=== PATIENT | male | born 1955 | race Two or more races ===

== ENCOUNTER 2025-10-01 09:42 | Outpatient (AMB) | payer MEDICARE, SELFPAY ==
--- NOTE | 2025-10-01 09:47 | A.PHYSOV ---
Vital Signs 10/01/25 09:49 Height 6 ft 2 in Weight 335 lb BMI 43.0 Intake Visit Reasons: back pain Intake Note: Patient is a 70 year old male here today for back pain. Infusion Pharmacist Required: No Allergies seafood Allergy (Unknown, Verified 10/01/25 09:47) Unknown HPI Comments Details: History of Present Illness The patient is a 70-year-old male presenting for evaluation of back and foot pain. 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 The patient reports symptoms in his feet including burning, tingling, and a sensation like a mattress in his shoes. These symptoms are worse at night and sometimes awaken him from sleep, forcing him to get out of bed. He also reports back pain that radiates down his legs to his buttocks and hips, which he believes may be sciatica. He has no prior back x-rays. The patient has a history of receiving injections of Depo-Medrol with lidocaine in his back in [place], which he reports were helpful. A review of his records indicates he received bilateral sacroiliac joint injections on May 16, 2020. He has tried physical therapy in the past but found the exercises too strenuous. His diabetes is reportedly well-controlled with Mounjaro. He denies alcohol use. Pain Description - Location: Pain is located in the low back, hips, and buttocks, with radiation down the legs. - Associated Symptoms: He also experiences burning, tingling, and a sensation of a mattress in his feet, which sometimes travels up his legs. - Severity: The pain is currently a 3-4/10 but can worsen. - Timing: The foot pain is worse at night and can awaken him from sleep. - Alleviating Factors: He reports that prior injections of Depo-Medrol with lidocaine were helpful. Results - Medical Records: Previous reports confirm bilateral SI joint injections on May 16, 2020. [facility] Surgical History (Updated 10/01/25 @ 09:51 by Linda Knox MA) H/O lithotripsy Social History (Updated 10/01/25 @ 09:52 by Linda Knox MA) Alcohol intake: current Alcohol intake frequency: does not drink Patient Tobacco Use Status: Former Tobacco user Use of substances other than those prescribed or required for medical reasons: No Review of Systems Narrative Review of Systems - Musculoskeletal: Reports back pain and hip pain. - Neurological: Reports burning, tingling, and a sensation of a mattress in his feet, which can sometimes ascend his legs. - Reports pain radiating from his back to his buttocks, hips, and down his legs. - Genitourinary: Reports flank pain and questions a possible kidney stone. Physical Exam Exam Exam: Physical Exam - Back: No tenderness to palpation of the lower back. - Pain is elicited with lumbar extension. - No pain with forward flexion. - Tenderness to palpation over bilateral sacroiliac joints. - Neurological: Sensation is reported as equal in bilateral lower extremities. - Musculoskeletal: Full strength with foot dorsiflexion and plantarflexion, thigh flexion, and knee extension bilaterally. - Straight leg raise is negative for producing back or leg pain. Vital Signs: BMI result Body Mass Index 43.0 Assessment & Plan Assessment & Plan (1) Diabetic neuropathy: Code(s): E11.40 - Type 2 diabetes mellitus with diabetic neuropathy, unspecified Category: Medical Qualifiers: Diabetes mellitus complication detail: diabetic polyneuropathy Diabetes mellitus type: type 2 Qualified Code(s): E11.42 - Type 2 diabetes mellitus with diabetic polyneuropathy (2) Lumbar radiculopathy: Code(s): M54.16 - Radiculopathy, lumbar region Category: Medical Plan Pain Management - Analgesia: He previously received steroid injections which provided some relief. - Current pain level is 3-4/10. - Activities of Daily Living: His foot pain interrupts his sleep. - Aberrant Drug-Related Behaviors: He denies any alcohol consumption. Plan Patient was informed and verbally consented to the use of an ambient scribe for clinic note documentation during this visit. 1. Low Back Pain With Sciatica An x-ray of the back will be ordered to further evaluate the cause of his pain. The patient will be provided with a home exercise program to perform for 5 weeks, as he had a poor prior experience with formal physical therapy. If his symptoms do not improve after 5 weeks of home exercises, an MRI will be obtained to better visualize the lumbar spine before considering any injections. 2. Diabetic Neuropathy To manage his neuropathic pain, gabapentin 300 mg at night will be initiated. The patient was counseled that there is no cure for neuropathy and that the most effective management strategies are tight glycemic control and avoidance of alcohol. A follow-up visit is scheduled in five weeks. Discussion Notes I discussed the plan for his back pain, which involves obtaining an x-ray and starting a home exercise program. I explained that we need to determine the underlying cause of his pain before proceeding with further injections, and if he does not improve with exercises in five weeks, an MRI will be ordered. We discussed his neuropathic foot pain, and I recommended starting gabapentin 300 mg at night to help with pain, numbness, tingling, and sleep. I emphasized that there is no cure for neuropathy and that the best management involves good diabetic control and avoiding alcohol. The patient understood and agreed to the plan. Patient Instructions - Please get an X-ray of your back at a [facility] so your primary doctor can also see the results. - I will provide you with a home exercise program. - Please do these exercises for the next five weeks. - Schedule a follow-up appointment to see me in five weeks. - Start taking gabapentin 300 mg by mouth every night. - This medication can help with the nerve pain in your feet and may also help you sleep better. - Continue to take care of your diabetes and keep your blood sugars well-controlled. - Avoid drinking alcohol, as it can worsen nerve damage. Orders: Orders XR lumbar spine 4V min 10/01/25 M54.9 - Dorsalgia, unspecified Medications: New gabapentin 300 mg PO BEDTIME 30 caps 6RF 30 days E11.42 - Type 2 diabetes mellitus with diabetic polyneuropathy Coding Level of Care Code Tele Est Pt Level 4 (00376) Diagnoses Diabetic polyneuropathy associated with type 2 diabetes mellitus E11.42 Diabetes mellitus complication detail: diabetic polyneuropathy Diabetes mellitus type: type 2 Lumbar radiculopathy M54.16
[2025-10-01 09:49] VITALS: BMI 43.0
--- OUTSIDE RECORDS SUMMARY | 2025-10-01 11:18 | XMS_ITS | Encounter Summary ---
Author Organization [facility] [place] [address] Care Team Providers Care Final Dressing Cutter Name Role Phone Sheila Condon MD Primary Care Provider [phone] Encounter Details Date Type Department Care Team (Latest Contact Info) Description 10/01/2025 11:18 AM EST Hospital Encounter [facility] Xray [address] [place] [address] Dorsalgia, unspecified Social History Tobacco Use Types Packs/Day Years Used Date Smoking Tobacco: Former Cigarettes 0 Q uit: 10/17/1986 Smokeless Tobacco: Never Alcohol Use Standard Drinks/Week Comments Not Currently 0 (1 standard drink = 0.6 oz pur e alcohol) Housing Instability Answer Date Recorde d Are you worried that in the next 2 months you may not have stable housing? No 01/08/2025 Food Access & Nutrition Answer Date Rec orded Do you have access to a vari ety of food including fruits and vegetables? Yes 01/08/2025 Access to Healthcare Answer Date Record ed Within the last 3 months, ho w many times did you visit the emergency department for your medical care? 0 01/08/2025 Health Literacy Answer Date Recorded How often do you need to hav e someone help you when you read instructions, pamphlets, or other written material from your doctor or pharmacy? Rarely 01/08/2025 Caregiver: How often do you need to have someone help you when you read instructions, pamphlets, or other written material from your doctor or pharmacy? Not on file 01/08/2025 Financial Risk Answer Date Recorded How hard is it for you to pa y for the very basics like food, housing, medical care, and air conditioning / heating? Not very hard 01/08/2025 Transportation Answer Date Recorded Has the lack of transportati on kept you from meetings, work, or from getting things needed for daily living? No Has the lack of transportati on kept you from medical appointments or from getting medications? No 01/08/2025 Social Isolation Answer Date Recorded How often do you feel lonely or isolated from th ose around you? Never 01/08/2025 Food Risk Answer Date Recorded Within the past 12 months we worried whether our food would run out before we got money to buy more. Never true 01/08/2025 Within the past 12 months th e food we bought just didn't last and we didn't have money to get more. Never true 01/08/2025 Dependent Care Answer Date Recorded Do you need help finding or paying for care for your loved ones. For example, child day care center worker or elderly care for an older adult? No 01/08/2025 Education Answer Date Recorded Do you think completing more education or training, like finishing a GED, going to college, or learning a trade, would be helpful for you? No 01/08/2025 Employment and Income Answer Date Recor ded During the last four weeks, have you been actively looking for work? No 01/08/2025 Living Situation Answer Date Recorded What is your living situation? Unrecognized valu e 01/08/2025 Interpersonal Safety Answer Date Record ed Physical Abuse Unrecognized value 08/26/2025 Verbal Abuse Unrecognized value 08/26/2025 Sex and Gender Information Value Date Recorded Sex Assigned at Male 08/21/2025 11:25 AM EST Legal Sex Male 5:38 AM EST Gender Identity Male 08/21/2025 11:25 AM EST Sexual Orientation Straight 08/21/2025 11 :25 AM EST documented as of this encounter Plan of Treatment Upcoming Encounters Date Type Department Care Team (Late st Contact Info) Description 11/06/2025 9:45 AM EST Appointment [facility] Xray [address] [place] [phone] 02/05/2026 9:45 AM EDT Office Visit Internal Medicine - [place] [address] [place] [phone] Sheila Condon MD [address] [place] [address] 03/31/2026 9:10 AM EDT Office Visit Gastroenterology - [address] [facility] [address] [place] [address] Keila Suarez PA 299 [facility] [address] [place] [address] Scheduled Orders Name Type Priority Associated Diagnoses Orde r Schedule XR Lumbar Spine 4+ Views Imaging Routine Dorsalgia, unspecified Once for 1 Occurrences starting 10/01/2025 until 10/01/2025 documented as of this encounter Visit Diagnoses Diagnosis Dorsalgia, unspecified documented in this encounter Additional Health Concerns Assessment Noted Time PHQ-9 Depression Total Score: 0 05/01/20 25 9:24 AM EDT documented as of this encounter Care Teams Final Dressing Cutter Relationship Specialty Start Date End Date Sheila Condon MD [address] [facility] [address] [place] [address] PCP - General Internal Medicine 09/28/21 documented as of this encounter
--- OUTSIDE RECORDS SUMMARY | 2025-10-01 11:30 | XMS_ITS | Encounter Summary ---
Author Organization [facility] [place] [address] Care Team Providers Care C4 Planner Name Role Phone Sheila Condon MD Primary Care Provider [phone] Encounter Details Date Type Department Care Team ([facility] Contact Info) Description 08/25/2025 Results Follow-Up Gastroenterology - [address] [phone] Keila Suarez PA [address] [address] Social History Tobacco Use Types Packs/Day Years [...] care for your loved ones. For example, childcare teacher or elderly care for an older adult? [...] AM EST documented as of this encounter Progress Notes * RASHAUN Laguerre - 08/25/2025 6:53 PM EST I will send msg. documented in this encounter Plan of Treatment Upcoming Encounters Date Type Department Care Team (Latest Contact Info) Description 10/01/2025 11:18 AM EST Hospital Encounter [facility] Xray [address] [place] [phone] Dorsalgia, unspecified 11/06/2025 9:45 AM EST Appointment [facility] Xray [address] [place] [phone] 02/05/2026 9:45 AM EDT Office Visit Internal Medicine - [place] [address] [facility] [address] [address] [place] [phone] Sheila Condon MD [address] [place] [phone] 03/31/2026 9:10 AM EDT Office Visit Gastroenterology - [address] [place] [address] 299 [facility] [address] [place] [phone] Keila Suarez PA 299 [facility] [address] [place] [address] documented as of this encounter Visit Diagnoses Not on filedocumented in this encounter Additional Health Concerns Assessment Noted Time PHQ-9 Depression Total Score: 0 05/01/20 25 9:24 AM EDT documented as of this encounter Care Teams C4 Planner Relationship Specialty Start Date End Date Sheila Condon MD 175 [facility] [address] [place] [phone] PCP - General Internal Medicine 09/28/21 documented as of this encounter
--- OUTSIDE RECORDS SUMMARY | 2025-10-01 11:30 | XMS_ITS | Encounter Summary ---
Author Organization [facility] [place] [address] Care Team Providers Care Manufacturing Engineering Technician Name Role Phone Sheila Condon MD Primary Care Provider [phone] Encounter Details Date Type Department Care Team ([facility] st Contact Info) Description 08/27/2025 Results Follow-Up Gastroenterology - [address] [phone] Nadir Chavez DO [address] [address] Social History Tobacco Use Types Packs/Day Years [...] for your loved ones. For example, child caregiver private home or elderly care for an older adult? [...] as of this encounter Progress Notes * Lavinia Solis MA - 09/10/2025 9:15 AM EST [facility] Olson: [id number] approved. Effective Date: 09/10/2025 Authorization Expiration Date: 10/16/2026 [facility] informed. 0$ copay. Patient informed. * Sanjuanita Martin - 09/09/2025 10:37 AM EST Patient called back and said that his insurance does not cover this medication and it cost lie 800$which he can not afford. He is asking what Dr. Chavez wants him to do. He says in the meantime he willcontinue taking what he has been. Please advise. vonoprazan 20 mg tablet * Verenice Mario - 09/02/2025 10:17 AM EST Cathryn is calling from Dr. Leach office stating that the doctor said it is okay for the pt to start on Voquenza documented in this encounter Plan of Treatment Upcoming Encounters Date Type Department Care Team (Latest Contact Info) Description 10/01/2025 11:18 AM EST Hospital Encounter [facility] Xray [address] [place] [phone] Dorsalgia, unspecified 11/06/2025 9:45 AM EST Appointment [facility] Xray [address] [place] [address] 02/05/2026 9:45 AM EDT Office Visit Internal Medicine - [place] [address] [facility] 200 [place] [phone] Sheila Condon MD [address] [place] [phone] 03/31/2026 9:10 AM EDT Office Visit Gastroenterology - [address] [place] [address] [address] [place] [phone] Keila Suarez PA [address] [address] documented as of this encounter Visit Diagnoses Not on filedocumented in this encounter Additional Health Concerns Assessment Noted Time PHQ-9 Depression Total Score: 0 05/01/20 25 9:24 AM EDT documented as of this encounter Care Teams Manufacturing Engineering Technician Relationship Specialty Start Date End Date Sheila Condon MD [address] [phone] PCP - General Internal Medicine 09/28/21 documented as of this encounter
--- OUTSIDE RECORDS SUMMARY | 2025-10-01 11:30 | XMS_ITS | Clinical Summary ---
Author Organization 175 [facility] Address [address] [place] [address] Phone Care Team Providers Care Substation Designer Name Role Phone Sheila Condon MD Primary Care Provider [phone] Allergies Active Allergy Reactions Criticality Noted Date Comments Other 04/10/2021 No reaction documented. Shellfish Containing Products 08/20/2025 Shellfish Derived Hives,Itching,Rash,S w elling 08/20/2025 Medications famotidine (PEPCID) 20 mg tablet TAKE 1 TABLET BY MOUTH TWICE DAILY 200 tablet 2 08/27/20 24 Active cyanocobalamin (VITAMIN B-12) 100 mcg tablet Take 1,000 Each by mouth daily. Active omeprazole (PriLOSEC) [address] capsule Take 1 Capsule by mouth daily for 360 days. 04/07/20 22 Active ondansetron (ZOFRAN) 4 mg tablet Take 1 Tablet by mouth 2 times daily as needed for Nausea. 07/19/20 23 Active multivitamin (MULTIPLE VITAMINS ORAL) Take 1 tablet by mouth daily. Active MELATONIN ORAL Take 10 mg by mouth. Active alpha lipoic acid 600 mg capsule Take 1 capsule by mouth daily. Active Multivitamins With Fluoride 0.25 mg chewable tablet Daily Active sulindac (CLINORIL) 150 mg tablet Take 1 tablet (150 mg total) by mouth 2 (two) times a day. TAKE 1 TABLET BY MOUTH WITH FOOD TWICE DAILY NEEDED FOR PAIN. 200 tablet 2 01/25/20 25 Active ketoconazole (NIZORAL) 2 % cream Apply topically 2 (two) times a day. Apply locally twice a day 15 g 3 06/04/20 25 Active glipiZIDE (GLUCOTROL XL) 5 mg 24 hr tablet TAKE 1 TABLET BY MOUTH EVERY DAY 90 tablet 3 06/26/20 25 Active tirzepatide (Mounjaro) 5 mg/0.5 mL injectionIndic ations:Type 2 diabetes mellitus with cataract (CMS/HCC V24, CMS/HCC V28),JOSE (obstructive sleep apnea),Morbid obesity (CMS/HCC V24, CMS/HCC V28) Inject 0.5 mL (5 mg total) under the skin every 7 (seven) days. 2 mL 2 07/15/20 25 Active Jardiance 10 mg tablet Take 1 tablet (10 mg total) by mouth 1 (one) time each day in the morning. 08/07/20 25 026 Active sucralfate (CARAFATE) 100 mg/mL suspension Take 10 mL (1 g total) by mouth 3 (three) times a day before meals. Take 1 hour before meals and at bedtime 900 mL 3 08/20/20 25 026 Active tiZANidine (ZANAFLEX) 4 mg tablet Take 1 tablet (4 mg total) by mouth 3 (three) times a day if needed for muscle spasms. 30 tablet 3 09/03/20 25 Active metoprolol succinate (TOPROL-XL) 200 mg 24 hr tablet TAKE 1 TABLET BY MOUTH DAILY 100 tablet 2 09/05/20 25 Active vonoprazan 20 mg tablet Take 20 mg by mouth 1 (one) time each day. 90 tablet 4 09/05/20 25 Active potassium chloride (MICRO-K) 10 mEq CR capsule TAKE 1 CAPSULE BY MOUTH DAILY 100 capsule 2 09/16/20 25 Active rosuvastatin (CRESTOR) 5 mg tablet TAKE 1 TABLET (5 MG TOTAL) BY MOUTH AT BEDTIME. 90 tablet 1 09/23/20 25 Active rosuvastatin (CRESTOR) 5 mg tablet Take 1 tablet (5 mg total) by mouth at bedtime. TAKE 1 TABLET BY MOUTH EVERYDAY AT BEDTIME 90 tablet 1 09/23/20 25 Active metoprolol succinate (TOPROL-XL) 200 mg 24 hr tablet TAKE 1 TABLET BY MOUTH DAILY 100 tablet 2 10/23/19 25 025 Discontinued potassium chloride (MICRO-K) 10 mEq CR capsule Take 1 capsule (10 mEq total) by mouth 1 (one) time each day. TAKE 1 CAPSULE BY MOUTH DAILY 100 capsule 2 10/29/19 025 Discontinued rosuvastatin (CRESTOR) 5 mg tablet Take 1 tablet (5 mg total) by mouth at bedtime. TAKE 1 TABLET BY MOUTH EVERYDAY AT BEDTIME 90 tablet 1 01/10/20 25 025 Discontinued(Re order) Active Problems Problem Noted Date Diagnosed Date Achalasia 01/13/2024 COVID-19 10/06/2022 Palpitations 06/09/2021 Overview (09/26/2024): Last Assessment & Plan: Occasional and very brief. Most likely from ectopic heartbeat. We had a discussion about ambulatory monitor device. BPH (benign prostatic hyperplasia) 04/10/2021 Cataract 04/10/2021 Overview (09/26/2024): bilaterally CKD (chronic kidney disease) stage 3, GFR 30-59 ml/min 04/10/2021 Assessment & Plan (05/01/2025 9:52 AM EDT): Orders: Hemoglobin A1c; Future Basic metabolic panel; Future Microalbumin creatinine urine ratio; Future Diverticulosis 04/10/2021 Overview (09/26/2024): Large bowel, 05/26/2020 abd/pelvic CT Hiatal hernia 04/10/2021 Overview (09/26/2024): Small, barium swallow 07/20/2018 HTN (hypertension) 04/10/2021 Overview (09/26/2024): Last Assessment & Plan: Well-controlled. We will continue current regimen. Hyperlipidemia 04/10/2021 Overview (09/26/2024): Last Assessment & Plan: Will suggest to start medium dose statin for primary prevention due to diabetes. Insomnia 04/10/2021 Major depressive disorder, recurrent, moderate 0 04/10/2021 Assessment & Plan (05/01/2025 9:52 AM EDT): Orders: Hemoglobin A1c; Future Basic metabolic panel; Future Microalbumin creatinine urine ratio; Future Bilateral renal cysts 04/10/2021 Overview (09/26/2024): 07/14/2020 MRI, follow up U/S recommended. Nephrolithiasis 04/10/2021 JOSE (obstructive sleep apnea) 04/10/2021 Overview (09/26/2024): [facility] Home Sleep Apnea Test: Date 06/11/2021; Wt 315#; BMI 39; GABRIEL (AHI) 9, AI 3; HI 7; Unclassified apneas 1; Obstructive apneas 13; Central apneas 1; Mixed apneas 8; hypopneas 41; average oxygen saturation 94% (lowest 86% without saturations <88% for 5% or more of study) - Obstructive Sleep Apnea - mild; mostly hypopneas with obstructive apneas; without sleep related hypoventilation by 2020 home sleep apnea test. Assessment & Plan (05/01/2025 9:52 AM EDT): Orders: tirzepatide (MOUNJARO) 5 mg/0.5 mL injection; Inject 0.5 mL (5 mg total) under the skin every 7 (seven) days. Hemoglobin A1c; Future Basic metabolic panel; Future Microalbumin creatinine urine ratio; Future Spinal stenosis, lumbar 04/10/2021 Type 2 diabetes mellitus with cataract Assessment & Plan (05/01/2025 9:52 AM EDT): Orders: tirzepatide (MOUNJARO) 5 mg/0.5 mL injection; Inject 0.5 mL (5 mg total) under the skin every 7 (seven) days. Ambulatory referral to Podiatry; Future Hemoglobin A1c; Future Basic metabolic panel; Future Microalbumin creatinine urine ratio; Future Type 2 diabetes mellitus with renal manifestatio ns 04/10/2021 Encounters Date Type Department Care Team Description 10/01/2025 11:18 AM [facility] Hospital Encounter [facility] Xray [address] [place] [address] Dorsalgia, unspecified 09/03/2025 9:45 AM EST Office Visit Internal Medicine - [place] [facility] [address] [place] [phone] Sheila Condon MD Spinal stenosis of lumbar region, unspecified whether neurogenic claudication present (Primary Dx); Primary hypertension; Mixed hyperlipidemia; Stage 3a chronic kidney disease ([facility] V24, [facility] V28); JOSE (obstructive sleep apnea) 08/27/2025 Results Follow-Up Gastroenterology - [address] [phone] Elizabeth Chavez DO 08/26/2025 8:35 AM EST Anesthesia Event [facility] Endoscopy [address] [place] [phone] Hai Olguin MD 08/26/2025 6:47 AM EST - 08/26/2025 11:59 PM EST Hospital Encounter [facility] Endoscopy [address] [place] [phone] Elizabeth Chavez DO Chang, Daniel J, MD Decandio, Laura, CRNA Dysphagia, unspecified type Discharge Disposition: Home or Self Care 08/25/2025 Results Follow-Up Gastroenterology - [address] [phone] Keila Suarez PA 08/20/2025 10:12 AM EST - 08/20/2025 11:59 PM EST Hospital Encounter [facility] Xray [address] [place] [address] Achalasia; Dysphagia, unspecified type; Tubular adenoma Discharge Disposition: Home or Self Care 08/20/2025 9:30 AM EST Office Visit Gastroenterology - [address] [phone] Keila Suarez PA Achalasia (Primary Dx); Dysphagia, unspecified type; Tubular adenoma 08/20/2025 Telephone Gastroenterology - [address] [phone] Adriana Goldberg [place] 08/15/2025 8:10 AM EDT Lab Draw Station - [address] [facility] [address] [place] [phone] Chronic kidney disease, stage III (moderate) ([facility] V24, [facility] V28) (Primary Dx); Morbid obesity ([facility] V24, [facility] V28); Diabetes mellitus ([facility] V24, [facility] V28) 07/16/2025 9:15 AM EDT Consult Orthopedic Surgery - [place] [address] [facility] [address] [place] [phone] Nael Bright DPM Controlled type 2 diabetes mellitus with diabetic polyneuropathy, without long-term current use of insulin ([facility] V24, [facility] V28) (Primary Dx); Hammer toes of both feet; Lumbosacral radiculopathy; Localized edema; PVD (peripheral vascular disease) ([facility] V24); Onychomycosis; Callus from Last 3 Months Immunizations Immunization Administration Dates Next Due Influenza Quadravalent, 0.5ml (Fluad) 65yo and o lder 09/28/2023 Influenza Quadravalent, 0.5m l (Fluzone High-dose) 65yo and older 07/22/2022,09/14/2021 Influenza trivalent, 0.5mL (Fluad) 65yo and olde r 09/03/2025 Omise SARS-CoV-2 COVID-19, mRNA, LNP-S, preservative free 12/20/2020,11/29/2020 Pneumococcal conjugate 20 va lent (Prevnar 20, PCV 20) 2mo and older 05/01/2025 RSV, bivalent, protein subun it RSVpreF, 0.5mL, Preservative Free (Arexvy) 50yo and older 09/28/2023 Surgical History Surgery Date Site/Laterality Comments LITHOTRIPSY 09/09/2020 Right PROCEDURE: HISTORICAL LITHOTRIPSY TONSILLECTOMY PROCEDURE: HISTORICAL TONSILLECTOMY COLONOSCOPY 04/28/2013 PROCEDURE: HISTORICAL COLONOSCOPY; COMMENT: colon polyps, mild sigmoid diverticulosis, internal hemorrhoid Grade 1. Medical History Medical History Date Comments JOSE (obstructive sleep apnea) 04/10/2021 DX :JOSE (obstructive sleep apnea) Type 2 diabetes mellitus wit h renal manifestations ([facility] V24, [facility] V28) 04/10/2021 DX:Type 2 diabetes mellitus with renal manifestations (HCC) CKD (chronic kidney disease) stage 3, GFR 30-59 ml/min ([facility] V24, [facility] V28) 04/10/2021 DX:CKD (chronic kidney disea se) stage 3, GFR 30-59 ml/min (HCC) HTN (hypertension) 04/10/2021 DX:HTN (hyper tension) Major depressive disorder, r ecurrent, moderate ([facility] V24, [facility] V28) 04/10/2021 DX:Major depressiv e disorder, recurrent, moderate ([facility]) Insomnia 04/10/2021 DX:Insomnia Spinal stenosis, lumbar 04/10/2021 DX:Spina l stenosis, lumbar Cataract 04/10/2021 DX:Cataract; COM MENT: bilaterally Type 2 diabetes mellitus wit h cataract ([facility] V24, [facility] V28) 04/10/2021 DX:Type 2 diabetes mellitus with cataract ([facility]) BPH (benign prostatic hyperplasia) 04/10/2021 DX:BPH (benign prostatic hyperplasia) Nephrolithiasis 04/10/2021 DX:Nephrolithias is Bilateral renal cysts 04/10/2021 DX:Bilater al renal cysts; COMMENT: 07/14/2020 MRI, follow up U/S recommended. CAD (coronary artery disease) 04/10/2021 DX :CAD (coronary artery disease) Diverticulosis 04/10/2021 DX:Diverticulosi s; COMMENT: Large bowel, 05/26/2020 abd/pelvic CT Hyperlipidemia 04/10/2021 DX:Hyperlipidemi a History of colon polyps 04/10/2021 DX:Histo ry of colon polyps; COMMENT: Copy of colonoscopy, difficult to read, ? 04/28/2013 History of gastritis 04/10/2021 DX:History of gastritis; COMMENT: Stomach biopsy 07/18/2018, negative Hiatal hernia 04/10/2021 DX:Hiatal hernia ; COMMENT: Small, barium swallow 07/20/2018 Family History Medical History Relation Name Comments Alzheimer's disease Father Alzheimer's disease Mother Relation Name Status Comments Father Mother Social History Tobacco Use Types Packs/Day Years Used Date Smoking Tobacco: Former Cigarettes 0 Q uit: 10/17/1986 Smokeless Tobacco: Never Tobacco Cessation:Counseling Given: Not Answered Alcohol Use Standard Drinks/Week Comments Not Currently [...] for your loved ones. For example, child care provider or elderly care for an older adult? [...] Orientation Straight 08/21/2025 11 :25 AM EST Last Filed Vital Signs Vital Sign Reading Time Taken Comments Blood Pressure 126/72 09/03/2025 9:46 AM EST Pulse 86 09/03/2025 9:46 AM EST Temperature 36.6 C (97.8 F) 09/03/2025 9:46 AM EST Respiratory Rate 18 09/03/2025 9:46 AM EST Oxygen Saturation 98% 09/03/2025 9:46 AM EST Inhaled Oxygen Concentration - - Weight 147 kg (323 lb) 09/03/2025 9:46 AM EST Height 188 cm (6' 2 ) 09/03/2025 9:46 AM EST Body Mass Index 41.47 09/03/2025 9:46 AM EST Plan of Treatment Upcoming Encounters Date Type Department Care Team (Latest Contact Info) Description 10/01/2025 11:18 AM EST Hospital Encounter [facility] Xray [address] [place] [phone] Dorsalgia, unspecified 11/06/2025 9:45 AM EST Appointment [facility] Xray [address] [place] [phone] 02/05/2026 9:45 AM EDT Office Visit Internal Medicine - [place] [facility] [address] [place] [phone] Sheila Condon MD [address] [place] [phone] 03/31/2026 9:10 AM EDT Office Visit Gastroenterology - [address] [facility] [address] [place] [phone] Keila Suarez PA [facility] [address] [place] [address] Health Maintenance Due Date Last Done Comments Diabetes: Annual Foot Exam 1965 DTaP,Tdap,and Td Vaccines (1 - Tdap) 1974 Zoster Vaccines (1 of 2) 1974 Abdominal Aortic Aneurysm (AAA) Screen 09/25/2022 Hepatitis C Screening 09/25/2022 COVID-19 Vaccine ( - season) 2025 09/10/2025, 07/22/2022, 04/03/2022, Additional history exists Social Influencers of Health Screening 01/08/2026 01/08/2025 Diabetes: Blood Sugar Control Test (HGBA1C) 02/13/2026 08/15/2025, 05/01/2025, 01/15/2025, Additional history exists Medicare Annual Wellness Visit 05/01/2026 05/01/2025 Diabetes: Annual Retina Eye Exam 08/13/2026 08/13/2025 Diabetes: Annual Urine Albumin-Creatinine Ratio (uACR) 08/15/2026 08/15/2025, 05/01/2025, 07/17/2024 Diabetes: Annual GFR (Glomerular Filtration Rate) 08/15/2026 08/15/2025, 05/01/2025, 01/15/2025, Additional history exists Hypertension/CHF/CAD Annual BMP Blood Test 08/15/2026 08/15/2025, 05/01/2025, 01/15/2025, Additional history exists Falls Risk Assessment 08/26/2026 08/26/2025 Cholesterol Screening (Lipid Panel) 01/15/2030 01/15/2025, 01/13/2024 Colorectal Cancer Screening: Colonoscopy 09/30/2032 09/30/2022 RSV Immunization Adult Patients Completed 09/28/2023 Depression Screening Completed 05/01/2025 Pneumococcal Vaccine: 50+ Years Completed 05/01/2025 Influenza Vaccine Completed 09/03/2025, , 07/22/2022, Additional history exists HIB Vaccines Aged Out No longer eligi ble based on patient's age to complete this topic HPV Vaccines Aged Out No longer eligi ble based on patient's age to complete this topic Hepatitis A Vaccines Aged Out No long er eligible based on patient's age to complete this topic Hepatitis B Vaccines Aged Out No long er eligible based on patient's age to complete this topic IPV Vaccines Aged Out No longer eligi ble based on patient's age to complete this topic MMR Vaccines Aged Out No longer eligi ble based on patient's age to complete this topic Meningococcal ACWY Vaccine Aged Out N o longer eligible based on patient's age to complete this topic Meningococcal B Vaccine Aged Out No l onger eligible based on patient's age to complete this topic RSV Immunization Patients Under 20 months Aged Out No longer eligible based on patient's age to complete this topic Varicella Vaccines Aged Out No longer eligible based on patient's age to complete this topic Procedures Procedure Name Priority Date/Time Associated Diagnosis Comments EGD Routine 08/26/2025 8:53 AM EST Dysphagia, unspecified type TISSUE EXAM Routine 08/26/2025 8:49 AM EST Dysphagia, unspecified type XR CERVICAL SPINE 2-3 VIEWS Routine 08/20/2025 10:54 AM EST Achalasia Dysphagia, unspecified type Tubular adenoma CBC WITH AUTO DIFFERENTIAL Routine 08/15/2025 8:23 AM EDT Chronic kidney disease, stage III (moderate) (CMS/HCC V24, CMS/HCC V28) Morbid obesity (CMS/HCC V24, CMS/HCC V28) Diabetes mellitus (CMS/HCC V24, CMS/HCC V28) CAMPOS URINE CULTURE TUBE Routine 08/15/2025 8:23 AM EDT Chronic kidney disease, stage III (moderate) (CMS/HCC V24, CMS/HCC V28) Morbid obesity (CMS/HCC V24, CMS/HCC V28) Diabetes mellitus (CMS/HCC V24, CMS/HCC V28) URINALYSIS WITH REFLEX MICROSCOPIC AND CULTURE Routine 08/15/2025 8:23 AM EDT Chronic kidney disease, stage III (moderate) (CMS/HCC V24, CMS/HCC V28) Morbid obesity (CMS/HCC V24, CMS/HCC V28) Diabetes mellitus (CMS/HCC V24, CMS/HCC V28) CBC AND DIFFERENTIAL Routine 08/15/2025 8:23 AM EDT Chronic kidney disease, stage III (moderate) (CMS/HCC V24, CMS/HCC V28) Morbid obesity (CMS/HCC V24, CMS/HCC V28) Diabetes mellitus (CMS/HCC V24, CMS/HCC V28) BASIC METABOLIC PANEL Routine 08/15/2025 8:23 AM EDT Chronic kidney disease, stage III (moderate) (CMS/HCC V24, CMS/HCC V28) Morbid obesity (CMS/HCC V24, CMS/HCC V28) Diabetes mellitus (CMS/HCC V24, CMS/HCC V28) HEMOGLOBIN A1C Routine 08/15/2025 8:23 AM EDT Chronic kidney disease, stage III (moderate) (CMS/HCC V24, CMS/HCC V28) Morbid obesity (CMS/HCC V24, CMS/HCC V28) Diabetes mellitus (CMS/HCC V24, CMS/HCC V28) THYROID STIMULATING HORMONE Routine 08/15/2025 8:23 AM EDT Chronic kidney disease, stage III (moderate) (CMS/HCC V24, CMS/HCC V28) Morbid obesity (CMS/HCC V24, CMS/HCC V28) Diabetes mellitus (CMS/HCC V24, CMS/HCC V28) MICROALBUMIN CREATININE URINE RATIO Routine 08/15/2025 8:23 AM EDT Chronic kidney disease, stage III (moderate) (CMS/HCC V24, CMS/HCC V28) Morbid obesity (CMS/HCC V24, CMS/HCC V28) Diabetes mellitus (CMS/HCC V24, CMS/HCC V28) URINALYSIS WITH REFLEX MICROSCOPIC AND CULTURE Routine 08/15/2025 8:23 AM EDT Chronic kidney disease, stage III (moderate) (CMS/HCC V24, CMS/HCC V28) Morbid obesity (CMS/HCC V24, [facility] V28) Diabetes mellitus ([facility] V24, [facility] V28) EXTERNAL DIABETIC RETINA EYE EXAM 08/13/2025 LIPID PANEL WITH REFLEX TO DIRECT LDL Routine 01/15/2025 9:15 AM EDT Primary hypertension Mixed hyperlipidemia Type 2 diabetes mellitus with cataract ([facility] V24, [facility] V28) COLONOSCOPY Routine 09/30/2022 from Last 3 Months or Most Recently Relevant to Health Maintenance Results * EGD Dilation; Anesthesia - MAC; [facility] ENDOSCOPY (08/26/2025 8:53 AM EST) Anatomical Region Laterality Modality Endoscopy 08/26/2025 8:27 AM EST Impressions 08/26/2025 8:53 AM EST - Z-line irregular, 38 cm from the incisors. Biopsied. WATS-3D brush biopsy specimens obtained. - The presence of achalasia was doubtful. Dilated. - Normal stomach. - Normal examined duodenum. Recommendation: - Discharge patient to home. - Soft diet. - If symptoms recur consider manometry evaluation. Very hypertensive LES suggesting early achalasia. - Continue present medications. - Await pathology results. - F/U with primary GI provider (as instructed prior to the booking of today's procedure) to discuss a group home therapeutic plan. Narrative 08/26/2025 8:53 AM EST [facility] GI Patient Name: Bessy Gallagher Procedure Date: 08/26/2025 8:27 AM Date of : 1955 Age: 70 Gender: Male Note Status: Finalized Attending MD: Elizabeth Chavez DO, [id number] Procedure Date No Time: 08/26/2025 Procedure: Upper GI endoscopy Indications: Dysphagia, Heartburn Providers: Elizabeth Chavez DO Referring MD: Sheila Condon MD Medicines: Monitored Anesthesia Care Complications: No immediate complications. Estimated blood loss: Minimal. Estimated Blood Loss: Estimated blood loss was minimal. Procedure: Pre-Anesthesia Assessment: - - Prior to the procedure, a History and Physical was performed, and patient medications and allergies were reviewed. The patient is competent. The risks and benefits of the procedure and the sedation options and risks were discussed with the patient. All questions were answered and informed consent was obtained. Patient identification and proposed procedure were verified by the physician, the nurse, the anesthesiologist, the lithograph operator and the fire technician in the pre-procedure area in the endoscopy suite. Mental Status Examination: alert and oriented. Airway Examination: normal oropharyngeal airway and neck mobility. Respiratory Examination: clear to auscultation. CV Examination: normal. Prophylactic Antibiotics: The patient does not require prophylactic antibiotics. Prior Anticoagulants: The patient has taken no anticoagulant or antiplatelet agents. ASA Grade Assessment: II - A patient with mild systemic disease. After reviewing the risks and benefits, the patient was deemed in satisfactory condition to undergo the procedure. The anesthesia plan was to use monitored anesthesia care (MAC). Immediately prior to administration of medications, the patient was re-assessed for adequacy to receive sedatives. The heart rate, respiratory rate, oxygen saturations, blood pressure, adequacy of pulmonary ventilation, and response to care were monitored throughout the procedure. The physical status of the patient was re-assessed after the procedure. After obtaining informed consent, the endoscope was passed under direct vision. Throughout the procedure, the patient's blood pressure, pulse, and oxygen saturations were monitored continuously. The Olympus Gastroscope was introduced through the mouth, and advanced to the second part of duodenum. The upper GI endoscopy was accomplished without difficulty. The patient tolerated the procedure well. Findings: The Z-line was irregular and was found 38 cm from the incisors. Biopsies were taken with a cold forceps for histology. Wide Area Transepithelial Sampling (WATS-3D Arthur Biopsy) was performed for histology and samples sent for Computer-Assisted 3-Dimensional analysis. Estimated blood loss was minimal. A hypertonic lower esophageal sphincter was found. There was severe resistance to endoscope advancement into the stomach. The Z-line was irregular. The gastroesophageal junction and cardia were normal on retroflexed view. A TTS dilator was passed through the scope. Dilation with an 18-19-20 mm balloon dilator was performed to 20 mm. The dilation site was examined following endoscope reinsertion and showed mild mucosal disruption. Estimated blood loss was minimal. The stomach was normal. The examined duodenum was normal. Procedure Code(s): --- Professional --- 32080, Esophagogastroduodenoscopy, flexible, transoral; with transendoscopic balloon dilation of esophagus (less than 30 mm diameter) 26895, 59, Esophagogastroduodenoscopy, flexible, transoral; with biopsy, single or multiple Diagnosis Code(s): --- Professional --- K22.89, Other specified disease of esophagus R13.10, Dysphagia, unspecified R12, Heartburn CPT copyright 2020 [employer]. All rights reserved. The codes documented in this report are preliminary and upon prepress proofer review may be revised to meet current compliance requirements. ELIZABETH Chavez DO 08/26/2025 8:53:17 AM This report has been signed electronically.Elizabeth Chavez DO Number of Addenda: 0 Note Initiated On: 08/26/2025 8:27 AM Scope In: Scope Out: Endoscopy Department at [facility] - [address] [place] [id number] Procedure Note Elizabeth Chavez DO - 08/26/2025 [facility] GI Patient Name: Bessy Gallagher Procedure Date: 08/26/2025 8:27 AM Date of : 1955 Age: 70 Gender: Male Note Status: Finalized Attending MD: Elizabeth Chavez DO, [id number] Procedure Date No Time: 08/26/2025 Procedure: Upper GI endoscopy Indications: Dysphagia, Heartburn Providers: Elizabeth Chavez DO Referring MD: Sheila Condon MD Medicines: Monitored Anesthesia Care Complications: No immediate complications. Estimated blood loss: Minimal. Estimated Blood Loss: Estimated blood loss was minimal. Procedure: Pre-Anesthesia Assessment: - - Prior to the procedure, a History and Physicalwas performed, and patient medications and allergieswere reviewed. The patient is competent. The risks and benefits of the procedure and the sedation optionsand risks were discussed with the patient. Allquestions were answered and informed consent was obtained. Patient identification and proposed procedure were verified by the physician, the nurse, the anesthesiologist, the lithograph operator and thetechnician in the pre-procedure area in the endoscopy suite. Mental Status Examination: alert and oriented.Airway Examination: normal oropharyngeal airway and neck mobility. Respiratory Examination: clear to auscultation. CV Examination: normal. Prophylactic Antibiotics: The patient does not requireprophylactic antibiotics. Prior Anticoagulants: The patient has taken no anticoagulant or antiplatelet agents. ASA Grade Assessment: II - A patient with mild systemic disease. After reviewing the risks and benefits,the patient was deemed in satisfactory condition to undergo the procedure. The anesthesia plan was touse monitored anesthesia care (MAC). Immediately priorto administration of medications, the patient was re-assessed for adequacy to receive sedatives. The heart rate, respiratory rate, oxygen saturations, blood pressure, adequacy of pulmonary ventilation,and response to care were monitored throughout the procedure. The physical status of the patient was re-assessed after the procedure. After obtaining informed consent, the endoscope was passed under direct vision. Throughout theprocedure, the patient's blood pressure, pulse, and oxygen saturations were monitored continuously. TheOlympus Gastroscope was introduced through the mouth, and advanced to the second part of duodenum. The upperGI endoscopy was accomplished without difficulty. The patient tolerated the procedure well. Findings: The Z-line was irregular and was found 38 cm fromthe incisors. Biopsies were taken with a cold forcepsfor histology. Wide Area Transepithelial Sampling(WATS-3D Arthur Biopsy) was performed for histology andsamples sent for Computer-Assisted 3-Dimensional analysis. Estimated blood loss was minimal. A hypertonic lower esophageal sphincter was found. There was severe resistance to endoscopeadvancement into the stomach. The Z-line was irregular. The gastroesophageal junction and cardia were normal on retroflexed view. A TTS dilator was passed throughthe scope. Dilation with an 18-19-20 mm balloon dilator was performed to 20 mm. The dilation site wasexamined following endoscope reinsertion and showed mild mucosal disruption. Estimated blood loss wasminimal. The stomach was normal. The examined duodenum was normal. Procedure Code(s): --- Professional --- 67523, Esophagogastroduodenoscopy, flexible, transoral; with transendoscopic balloon dilation of esophagus (less than 30 mm diameter) 25924, 59, Esophagogastroduodenoscopy, flexible, transoral; with biopsy, single or multiple Diagnosis Code(s): --- Professional --- K22.89, Other specified disease of esophagus R13.10, Dysphagia, unspecified R12, Heartburn CPT copyright 2020 [employer]. All rights reserved. The codes documented in this report are preliminary and upon prepress proofer reviewmay be revised to meet current compliance requirements. ELIZABETH Chavez DO 08/26/2025 8:53:17 AM This report has been signed electronically.Elizabeth Chavez DO Number of Addenda: 0 Note Initiated On: 08/26/2025 8:27 AM Scope In: Scope Out: Endoscopy Department at [facility] - [address] [place] [phone] IMPRESSION: - Z-line irregular, 38 cm from the incisors. Biopsied. WATS-3D brush biopsy specimens obtained. - The presence of achalasia was doubtful.Dilated. - Normal stomach. - Normal examined duodenum. Recommendation: - Discharge patient to home. - Soft diet. - If symptoms recur consider manometry evaluation. Very hypertensive LES suggesting early achalasia. - Continue present medications. - Await pathology results. - F/U with primary GI provider (as instructed priorto the booking of today's procedure) to discuss a group home therapeutic plan. Elizabeth Chavez DO GI~PROCEDURE ORDERABLES Final Re sult * Tissue exam (08/26/2025 8:49 AM EST) Final Diagnosis Gastroesophageal junction, biopsy: - Gastric cardiac/fundic type mucosa with chronic inflammation. - No squamous mucosa identified. - No intestinal metaplasia and no dysplasia identified. 08/27/2025 9:33 AM [facility] at 0933 EST Gross Description A. Esophagus, GE JUNCTION ESOPHAGEAL BIOPSIES: Labeled GE juncti . Received in formalin are two soft, red-white tissue fragments measuring approximately 0.25 cm greatest diameter, which are wrapped in paper and submitted in toto in one cassette, two pieces, multiple levels. TS 08/27/2025 9:33 AM [facility] Disclaimer Unless otherwise specified, all tissue is 10% NB formalin fixed and paraffin embedded. 08/27/2025 9:33 AM [facility] Tissue Esophageal structure / Unknown 08/26/2025 8:49 AM EST 08/26/2025 10:27 AM EST us Elizabeth Chavez DO LAB PATHOLOGY ORDERABLES Final R esult [facility] [address] [place] [address], [place] [phone] * XR Cervical Spine 2-3 Views (08/20/2025 10:54 AM EST) Anatomical Region Laterality Modality Spine, C-spine Radiographic Rhonda ging 08/20/2025 12:5 0 PM EST Impressions 08/20/2025 12:52 PM EST No acute abnormality. Bulky anterior osteophytes could have mass effect upon the esophagus greatest at C5/C6 -------- FINAL REPORT -------- Dictated By: Kiet Ramos Dictated Date: 08/20/2025 12:50 ET Assigned Physician: Kiet Ramos Reviewed and Electronically Signed By: Kiet Ramos Signed Date: 08/20/2025 12:52 ET Workstation ID: [id number] Transcribed By: Self Edit Transcribed Date: 08/20/2025 12:50 ET Narrative 08/20/2025 12:52 PM EST EXAMINATION: CERVICAL SPINE CLINICAL INFORMATION: Oral dysphagia COMPARISON: None. TECHNIQUE: 3 views of the cervical spine FINDINGS: No prevertebral soft tissue abnormality. No acute fracture. There is straightening of the expected lordosis. Moderate narrowing of the C4/C5 and C6/C7 discs. Bulky anterior osteophytes including bridging osteophytes at C5/C6. This could have mass effect upon the esophagus. No focal lesion or loss of volume. There is some uncovertebral joint spurring throughout the mid lower cervical spine. There is no suspicious abnormality in the apex of the chest. Procedure Note Kiet Ramos MD - 08/20/2025 EXAMINATION: CERVICAL SPINE CLINICAL INFORMATION: Oral dysphagia COMPARISON: None. TECHNIQUE: 3 views of the cervical spine FINDINGS: No prevertebral soft tissue abnormality. No acute fracture. There is straightening of the expected lordosis. Moderate narrowing of the C4/C5 and C6/C7 discs. Bulky anteriorosteophytes including bridging osteophytes at C5/C6. This could have masseffect upon the esophagus. No focal lesion or loss of volume. There is some uncovertebral jointspurring throughout the mid lower cervical spine. There is no suspiciousabnormality in the apex of the chest. IMPRESSION: No acute abnormality. Bulky anterior osteophytes could have mass effect upon the esophagusgreatest at C5/C6 -------- FINAL REPORT -------- Dictated By: Kiet Ramos Dictated Date: 08/20/2025 12:50 ET Assigned Physician: Kiet Ramos Reviewed and Electronically Signed By: Kiet Ramos Signed Date: 08/20/2025 12:52 ET Workstation ID: [id number] Transcribed By: Self Edit Transcribed Date: 08/20/2025 12:50 ET us Keila ORDNEY IMG XR PROCEDURES Final Resul t * Urinalysis with reflex microscopic and culture (08/15/2025 8:23 AM EDT) Specific [place] Urine 1.019 1.003 - 1.030 LAB URINALYSIS - AUTOMATED METHOD 08/15/2025 10:[address] [facility] pH, Urine 6.0 5.0 - 8.0 pH LAB URINALYSIS - AUTOMATED METHOD 08/15/2025 10:[address] [facility] Leukocytes, Urine Negative Negative LAB URINALYSIS - AUTOMATED METHOD 08/15/2025 10:[address] [facility] Nitrite, Urine Negative Negative LAB URINALYSIS - AUTOMATED METHOD 08/15/2025 10:[address] [facility] Protein, Urine Trace <=Trace mg/dL LAB URINALYSIS - AUTOMATED METHOD 08/15/2025 10:[address] [facility] Glucose, Urine Negative Negative mg/dL LAB URINALYSIS - AUTOMATED METHOD 08/15/2025 10:[address] [facility] Ketones, Urine Negative Negative mg/dL LAB URINALYSIS - AUTOMATED METHOD 08/15/2025 10:11 AM EDT [facility] Urobilinogen, Urine 1.0 0.2 - 1.0 mg/dL LAB URINALYSIS - AUTOMATED METHOD 08/15/2025 10:11 AM EDT [facility] Bilirubin, Urine Negative Negative LAB URINALYSIS - AUTOMATED METHOD 08/15/2025 10:11 AM EDT [facility] Blood, Urine Negative Negative LAB URINALYSIS - AUTOMATED METHOD 08/15/2025 10:11 AM EDT [facility] Urine Urine specimen obtained by clean catch procedure / Unknown Non-blood Collection / Unknown 08/15/2025 8:23 AM EDT 08/15/2025 8:23 AM EDT us Pcp Unknown Physician LAB URINE ORDERABLES Final Result Performing Organization Address City/[facility]/ZIP Co de Phone Number [facility] [address] [place] [address], [place] [phone] * Campos urine culture tube (08/15/2025 8:23 AM EDT) Extra Tube Hold for add-ons. 08/15/2025 10:01 AM EDT [facility] Comment:Auto resulted. Urine Urine specimen obtained by clean catch procedure / Unknown Non-blood Collection / Unknown 08/15/2025 8:23 AM EDT 08/15/2025 8:23 AM EDT us Bib Hubbard MD LAB URINE ORDERABLES Final Result Performing Organization Address City/[facility]/ZIP Co de Phone Number [facility] [address] [place] [address], [place] [phone] * (ABNORMAL) CBC auto differential (08/15/2025 8:23 AM EDT) WBC 7.5 4.8 - 10.8 K/[facility] HEMETOLOGY METHOD 08/15/2025 10:[address] [facility] RBC 4.50 4.50 - 5.50 M/mcL LAB HEMETOLOGY METHOD 08/15/2025 10:[address] [facility] Hemoglobin 14.4 13.5 - 17.5 g/dL LAB HEMETOLOGY METHOD 08/15/2025 10:[address] [facility] Hematocrit 42.9 42.0 - 54.0 % LAB HEMETOLOGY METHOD 08/15/2025 10:[address] [facility] MCV 95.5 79.0 - 98.0 FL LAB HEMETOLOGY METHOD 08/15/2025 10:[address] [facility] MCH 32.1(H) 27.0 - 32.0 pcg LAB HEMETOLOGY METHOD 08/15/2025 10:[address] [facility] MCHC 33.6 32.0 - 37.0 g/dL LAB HEMETOLOGY METHOD 08/15/2025 10:[address] [facility] RDW 13.7 11.0 - 15.0 % LAB HEMETOLOGY METHOD 08/15/2025 10:[address] [facility] Platelets 206 130 - 400 K/[facility] HEMETOLOGY METHOD 08/15/2025 10:[address] [facility] MPV 11.3(H) 7.0 - 11.0 FL LAB HEMETOLOGY METHOD 08/15/2025 10:[address] [facility] NRBC 0.0 <1.0 % LAB HEMETOLOGY METHOD 08/15/2025 10:[address] [facility] NRBC Absolute 0.00 <0.10 K/[facility] HEMETOLOGY METHOD 08/15/2025 10:[address] [facility] Neutrophils Relative 60.6 % LAB HEMETOLOGY METHOD 08/15/2025 10:[address] [facility] Lymphocytes Relative 22.9 % LAB HEMETOLOGY METHOD 08/15/2025 10:[address] [facility] Monocytes Relative 13.0 % LAB HEMETOLOGY METHOD 08/15/2025 10:[address] [facility] Eosinophils Relative 2.4 % LAB HEMETOLOGY METHOD 08/15/2025 10:[address] [facility] Basophils Relative 0.8 % LAB HEMETOLOGY METHOD 08/15/2025 10:[address] [facility] Immature Granulocytes Relative 0.3 % LAB HEMETOLOGY METHOD 08/15/2025 10:[address] [facility] Neutrophils Absolute 4.55 1.50 - 7.00 K/mcL LAB HEMETOLOGY METHOD 08/15/2025 10:[address] [facility] Lymphocytes Absolute 1.72 1.00 - 5.00 K/mcL LAB HEMETOLOGY METHOD 08/15/2025 10:[address] [facility] Monocytes Absolute 0.98 0.20 - 1.00 K/mcL LAB HEMETOLOGY METHOD 08/15/2025 10:[address] [facility] Eosinophils Absolute 0.18 0.00 - 0.50 K/mcL LAB HEMETOLOGY METHOD 08/15/2025 10:[address] [facility] Basophils Absolute 0.06 0.00 - 0.20 K/mcL LAB HEMETOLOGY METHOD 08/15/2025 10:[address] [facility] Immature Granulocytes Absolute 0.02 0.00 - 0.03 K/mcL LAB HEMETOLOGY METHOD 08/15/2025 10:[address] [facility] Blood Venous blood specimen / Unknown Venipuncture / Unknown 08/15/2025 8:23 AM EDT 08/15/2025 8:23 AM EDT Bib Hubbard MD LAB BLOOD ORDERABLES Final Result Performing Organization Address [facility]/ZIP Co de Phone Number [facility] [address] [place] [address], [place] [phone] * (ABNORMAL) Microalbumin creatinine urine ratio (08/15/2025 8:23 AM EDT) Creatinine, Urine 226.0 mg/dL LAB CHEMISTRY METHOD 08/15/2025 11:31 AM EDT [facility] Microalb, Ur 78.5(H) 0.0 - 29.0 mg/L LAB CHEMISTRY METHOD 08/15/2025 11:31 AM EDT [facility] Microalb/Crea t Ratio 35(H) <30 mg/g creat LAB CHEMISTRY METHOD 08/15/2025 11:31 AM EDT [facility] Urine Urine specimen obtained by clean catch procedure / Unknown Non-blood Collection / Unknown 08/15/2025 8:23 AM EDT 08/15/2025 8:23 AM EDT Bib Hubbard MD LAB URINE ORDERABLES Final Result Performing Organization Address City/[facility]/ZIP Co de Phone Number [facility] [address] [place] [address], [place] [phone] * Thyroid stimulating hormone (08/15/2025 8:23 AM EDT) TSH 1.33 0.40 - 4.00 mcIU/mL LAB CHEMISTRY METHOD 08/15/2025 10:59 AM EDT [facility] Blood Venous blood specimen / Unknown Venipuncture / Unknown 08/15/2025 8:23 AM EDT 08/15/2025 8:23 AM EDT Bib Hubbard MD LAB BLOOD ORDERABLES Final Result [facility] [address] [place] [address], [place] [phone] * Hemoglobin A1c (08/15/2025 8:23 AM EDT) Pathologist [facility] Hemoglobin A1C 6.1 <6.5 % LAB CHEMISTRY METHOD 08/15/2025 11:22 AM EDT [facility] Mean Bld Glu Estim. 128 mg/dL LAB CHEMISTRY METHOD 08/15/2025 11:22 AM EDT [facility] Blood Venous blood specimen / Unknown Venipuncture / Unknown 08/15/2025 8:23 AM EDT 08/15/2025 8:23 AM EDT Bib Hubbard MD LAB BLOOD ORDERABLES Final Result [facility] [address] [place] [address], [place] [phone] * (ABNORMAL) Basic metabolic panel (08/15/2025 8:23 AM EDT) [facility] Sodium 137 133 - 145 mmol/L LAB CHEMISTRY METHOD 08/15/2025 10:27 AM T [facility] Potassium 4.5 3.5 - 5.5 mmol/L LAB CHEMISTRY METHOD 08/15/2025 10:27 AM T [facility] Chloride 105 96 - 110 mmol/L LAB CHEMISTRY METHOD 08/15/2025 10:27 AM EDT [facility] CO2 27 21 - 32 mmol/L LAB CHEMISTRY METHOD 08/15/2025 10:27 AM T [facility] Anion Gap 5 3 - 11 LAB CHEMISTRY METHOD 08/15/2025 10:27 AM EDT [facility] Glucose 123(H) 70 - 100 mg/dL LAB CHEMISTRY METHOD 08/15/2025 10:27 AM EDT [facility] BUN 22 5 - 25 mg/dL LAB CHEMISTRY METHOD 08/15/2025 10:[address] [facility] Creatinine 1.53(H) 0.70 - 1.30 mg/dL LAB CHEMISTRY METHOD 08/15/2025 10:27 AM EDT [facility] eGFR 49(L) >=60 mL/min/1. 73m2 LAB CHEMISTRY METHOD 08/15/2025 10:27 AM EDT [facility] Comment:Calculation based on the Chronic Kidney Disease Epidemiology Collaboration (CKD-EPI) equation refit without adjustment for race. BUN/Creatinine Ratio 14.4 LAB CHEMISTRY METHOD 08/15/2025 10:[address] [facility] Calcium 9.5 8.5 - 10.5 mg/dL LAB CHEMISTRY METHOD 08/15/2025 10:[address] [facility] Blood Venous blood specimen / Unknown Venipuncture / Unknown 08/15/2025 8:23 AM EDT 08/15/2025 8:23 AM EDT Bib Hubbard MD LAB BLOOD ORDERABLES Final Result [facility] [address] [place] [address], * External Diabetic Retina Eye Exam Report (08/13/2025) Anatomical Region Laterality Modality Ultrasound us Provider [facility] US PROCEDURES Final Result * Lipid panel with reflex to direct LDL (01/15/2025 9:15 AM EDT) Cholesterol 134 0 - 200 mg/dL LAB CHEMISTRY METHOD 01/15/2025 1:[address] [facility] Triglycerides 145 0 - 150 mg/dL LAB CHEMISTRY METHOD 01/15/2025 1:05 PM EDT [facility] HDL 49 >=40 mg/dL LAB CHEMISTRY METHOD 01/15/2025 1:05 PM EDT [facility] LDL Calculated 56 0 - 100 mg/dL LAB CHEMISTRY METHOD 01/15/2025 1:05 PM EDT [facility] VLDL Cholesterol Scott 29 mg/dL LAB CHEMISTRY METHOD 01/15/2025 1:05 PM EDT [facility] Non HDL Chol. (LDL+VLDL) 85 <145 mg/dL LAB CHEMISTRY METHOD 01/15/2025 1:05 PM EDT [facility] Chol/HDL Ratio 2.7 0.0 - 4.4 LAB CHEMISTRY METHOD 01/15/2025 1:05 PM T [facility] Blood Venous blood specimen / Unknown Venipuncture / Unknown 01/15/2025 9:15 AM EDT 01/15/2025 10:04 AM EDT Sheila Condon MD LAB BLOOD ORDERABLES Final Res ult [facility] [address] [place] [address], * Colonoscopy (09/30/2022) Colonoscopy No interpreta tion,abstr acted, Anatomical Region Laterality Modality Other Historical Provider HEALTH MAINTENANCE Final Result from Last 3 Months or Most Recently Relevant to Health Maintenance Insurance [employer] 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
== END 2025-10-01 10:17 | disposition home or self-care (01) ==
LOC: HO.HPHYS 09:42
PROVIDERS: PCP Internal Medicine; Visit Provider Physician Assistant
DX: E11.42 Type 2 diabetes mellitus with diabetic polyneuropathy (principal); M54.16 Radiculopathy, lumbar region
CPT/HCPCS: 99214

== ENCOUNTER → 2025-10-01 09:42 | Outpatient (BNVA) | payer MEDICARE, SELFPAY | PROVIDERS: PCP Internal Medicine; Visit Provider Physician Assistant | DX: E11.42 Type 2 diabetes mellitus with diabetic polyneuropathy (principal); M54.16 Radiculopathy, lumbar region | CPT/HCPCS: 99212 ==